=== PATIENT | male | born 1985 | race Caucasian/White ===

== ENCOUNTER → 2016-06-22 | Day surgery (SDC) | payer SELFPAY ==
[~2016-06-22] MED LIST: Dextrose 5%-Lactated Ringers 1,000 ML IV SCH; Glycopyrrolate 0.2 MG/ML 2 ML SYRINGE IVPUSH ONE; Midazolam 1 MG/ML 2 ML SDV ONE; Propofol 200 MG/20 ML SDV ONE; fentaNYL 100 MCG/2 ML SDV ONE
[2016-06-22 08:18] VITALS: BP 145/92
== END ==
LOC: JP.SDS 07:32
PROVIDERS: ATTEND Surgery
DX: Z53.8 Procedure and treatment not carried out for other reasons (principal); K21.9 Gastro-esophageal reflux disease without esophagitis
CPT/HCPCS: J2250; J2704; J3010

== ENCOUNTER 2017-02-12 15:13 | Emergency (ER) | payer MEDICAID ==
[2017-02-12 15:36] VITALS: BP 124/58
--- NOTE | 2017-02-12 16:12 | EDM.PDOCBH ---
<OfficerFredy - Last Filed: 02/12/17 16:10> ED HPI GENERAL MEDICAL PROBLEM - General Chief Complaint: Behavioral/Psych Stated Complaint: EVAL Time Seen by Provider: 02/12/17 15:46 Source of Information: Reports: Patient, RN Notes Reviewed History Limitations: Reports: No Limitations - History of Present Illness INITIAL COMMENTS - FREE TEXT/NARRATIVE: 32-year-old gentleman presents emergency department today with complaint of suicidal ideation he does have a plan multiple ideas such as using a gun injection overdose cutting behavior he also has a history of IV methamphetamine use last used 2 days ago - Related Data Allergies Allergy/AdvReac Type Severity Reaction Status Date / Time No Known Allergies Allergy Verified 01/06/15 20:25 Home Meds: Home Meds Albuterol Sulfate [Proair Hfa] 1 - 2 inh INH Q4H PRN 06/20/14 [History] Albuterol [Proventil Neb Soln] 2.5 mg INH TID 06/20/16 [History] Omeprazole 40 mg PO DAILY 06/20/16 [History] Sertraline [Zoloft] 100 mg PO DAILY 02/12/17 [History] Past Medical History HEENT History: Reports: Impaired Vision, Sinusitis Other HEENT History: wears glasses Cardiovascular History: Reports: SOB on Exertion Respiratory History: Reports: Asthma Gastrointestinal History: Reports: GERD Musculoskeletal History: Reports: Back Pain, Chronic, Fracture Neurological History: Reports: Concussion, Headaches, Chronic Psychiatric History: Reports: Addiction, Aggressive/Hostile Behaviors, Antisocial Behaviors, Anxiety, Depression, Emotional Problems, Hallucinations, Mood Swings, Panic Attack, Suicide Attempt, Suicidal Ideation Endocrine/Metabolic History: Reports: Obesity/BMI 30+ - Infectious Disease History Infectious Disease History: Reports: Chicken Pox, Hepatitis A, Hepatitis B - Past Surgical History Respiratory Surgical History: Reports: None GI Surgical History: Reports: None Endocrine Surgical History: Reports: None Musculoskeletal Surgical History: Reports: Arthroscopic Knee Dermatological Surgical History: Reports: None Social & Family History - Tobacco Use Smoking Status *Q: Current Every Day Smoker Years of Tobacco use: 17 Packs/Tins Daily: 1 Used Tobacco, but Quit: No Month Tobacco Last Used: may Second Hand Smoke Exposure: Yes - Caffeine Use Caffeine Use: Reports: Coffee, Energy Drinks, Tea - Alcohol Use Days Per Week of Alcohol Use: 0 - Recreational Drug Use Recreational Drug Use: Yes Drug Use in Last 12 Months: Yes Recreational Drug Type: Reports: Methamphetamine Recreational Drug Use Frequency: Daily Recreational Drug Last Use: 02/09/17 ED ROS GENERAL - Review of Systems Review Of Systems: See Below Constitutional: Reports: No Symptoms HEENT: Reports: No Symptoms Respiratory: Reports: No Symptoms Cardiovascular: Reports: No Symptoms GI/Abdominal: Reports: No Symptoms : Reports: No Symptoms Skin: Reports: No Symptoms Neurological: Reports: No Symptoms Psychiatric: Reports: Suicidal Ideation ED EXAM, BEHAVIORAL HEALTH - Physical Exam Exam Limited By: No Limitations General Appearance: Alert, WD/WN, No Apparent Distress Eye Exam: Bilateral Eye: Normal Inspection Respiratory/Chest: No Respiratory Distress, Lungs Clear, Normal Breath Sounds, No Accessory Muscle Use Cardiovascular: Regular Rate, Rhythm, No Murmur GI/Abdominal: Soft, Non-Tender Psychiatric: Alert, Depressed Mood, Tearful, Agitated, Suicidal Plan, Suicidal Thoughts COURSE, BEHAVIORAL HEALTH COMP - Course Vital Signs: Last Vital Signs Temp 97.3 F 02/12/17 15:39 Pulse 91 02/12/17 15:39 Resp 18 02/12/17 15:39 BP 124/58 L 02/12/17 15:39 Pulse Ox 95 02/12/17 15:39 Orders, Labs, Meds: Laboratory Tests 02/12/17 02/12/17 02/12/17 Range/Units 16:15 16:15 16:15 WBC 7.3 (4.5-11.0) K/uL RBC 4.95 (4.30-5.90) M/uL Hgb 15.0 (12.0-15.0) g/dL Hct 44.1 (40.0-54.0) % MCV 89 (80-98) fL MCH 30 (27-31) pg MCHC 34 (32-36) % Plt Count 283 (150-400) K/uL Neut % (Auto) 59 (36-66) % Lymph % (Auto) 34 (24-44) % Blount % (Auto) 5 (2-6) % Eos % (Auto) 2 (2-4) % Baso % (Auto) 0 (0-1) % Sodium 141 (140-148) mmol/L Potassium 3.9 (3.6-5.2) mmol/L Chloride 104 (100-108) mmol/L Carbon Dioxide 29 (21-32) mmol/L Anion Gap 8.5 (5.0-14.0) mmol/L BUN 15 D (7-18) mg/dL Creatinine 0.9 (0.8-1.3) mg/dL Est Cr Clr Drug Dosing 130.53 mL/min Estimated GFR (MDRD) > 60 (>60) Glucose 83 (74-106) mg/dL Calcium 8.6 (8.5-10.1) mg/dL Total Bilirubin 0.4 D (0.2-1.0) mg/dL AST 25 D (15-37) U/L ALT 36 (12-78) U/L Alkaline Phosphatase 98 (46-116) U/L Total Protein 7.4 (6.4-8.2) g/dL Albumin 4.0 (3.4-5.0) g/dL Globulin 3.4 (2.3-3.5) g/dL Albumin/Globulin Ratio 1.2 (1.2-2.2) TSH, Ultra Sensitive (0.358-3.740) uIU/mL Urine Color Urine Appearance Urine pH (4.5-8.0) Ur Specific [place] (1.008-1.030) Urine Protein (NEGATIVE) mg/dL Urine Glucose (UA) (NEGATIVE) mg/dL Urine Ketones (NEGATIVE) mg/dL Urine Occult Blood (NEGATIVE) Urine Nitrite (NEGAITVE) Urine Bilirubin (NEGATIVE) Urine Urobilinogen (NORMAL) mg/dL Ur Leukocyte Esterase (NEGATIVE) Urine RBC (0-5) Urine WBC (0-5) Ur Epithelial Cells Amorphous Sediment Urine Bacteria Urine Mucus Urine Opiates Screen (NEGATIVE) Ur Oxycodone Screen (NEGATIVE) Urine Methadone Screen (NEGATIVE) Ur Propoxyphene Screen (NEGATIVE) Ur Barbiturates Screen (NEGATIVE) Ur Tricyclics Screen (NEGATIVE) Ur Phencyclidine Scrn (NEGATIVE) Ur Amphetamine Screen (NEGATIVE) U Methamphetamines Scrn (NEGATIVE) Urine MDMA Screen (NEGATIVE) U Benzodiazepines Scrn (NEGATIVE) U Cocaine Metab Screen (NEGATIVE) U Marijuana (THC) Screen (NEGATIVE) Ethyl Alcohol 3 mg/dL 02/12/17 02/12/17 02/12/17 Range/Units 16:15 17:08 17:08 WBC (4.5-11.0) K/uL RBC (4.30-5.90) M/uL Hgb (12.0-15.0) g/dL Hct (40.0-54.0) % MCV (80-98) fL MCH (27-31) pg MCHC (32-36) % Plt Count (150-400) K/uL Neut % (Auto) (36-66) % Lymph % (Auto) (24-44) % Blount % (Auto) (2-6) % Eos % (Auto) (2-4) % Baso % (Auto) (0-1) % Sodium (140-148) mmol/L Potassium (3.6-5.2) mmol/L Chloride (100-108) mmol/L Carbon Dioxide (21-32) mmol/L Anion Gap (5.0-14.0) mmol/L BUN (7-18) mg/dL Creatinine (0.8-1.3) mg/dL Est Cr Clr Drug Dosing mL/min Estimated GFR (MDRD) (>60) Glucose (74-106) mg/dL Calcium (8.5-10.1) mg/dL Total Bilirubin (0.2-1.0) mg/dL AST (15-37) U/L ALT (12-78) U/L Alkaline Phosphatase (46-116) U/L Total Protein (6.4-8.2) g/dL Albumin (3.4-5.0) g/dL Globulin (2.3-3.5) g/dL Albumin/Globulin Ratio (1.2-2.2) TSH, Ultra Sensitive 0.667 (0.358-3.740) uIU/mL Urine Color Yellow Urine Appearance Clear Urine pH 5.0 (4.5-8.0) Ur Specific [place] 1.025 (1.008-1.030) Urine Protein Negative (NEGATIVE) mg/dL Urine Glucose (UA) Normal (NEGATIVE) mg/dL Urine Ketones Negative (NEGATIVE) mg/dL Urine Occult Blood Negative (NEGATIVE) Urine Nitrite Negative (NEGAITVE) Urine Bilirubin Negative (NEGATIVE) Urine Urobilinogen Normal (NORMAL) mg/dL Ur Leukocyte Esterase Negative (NEGATIVE) Urine RBC 0-5 (0-5) Urine WBC 0-5 (0-5) Ur Epithelial Cells Few Amorphous Sediment Few Urine Bacteria Few Urine Mucus Numerous Urine Opiates Screen Negative (NEGATIVE) Ur Oxycodone Screen Negative (NEGATIVE) Urine Methadone Screen Negative (NEGATIVE) Ur Propoxyphene Screen Negative (NEGATIVE) Ur Barbiturates Screen Negative (NEGATIVE) Ur Tricyclics Screen Negative (NEGATIVE) Ur Phencyclidine Scrn Negative (NEGATIVE) Ur Amphetamine Screen Positive H (NEGATIVE) U Methamphetamines Scrn Positive H (NEGATIVE) Urine MDMA Screen Positive H (NEGATIVE) U Benzodiazepines Scrn Negative (NEGATIVE) U Cocaine Metab Screen Negative (NEGATIVE) U Marijuana (THC) Screen Positive H (NEGATIVE) Ethyl Alcohol mg/dL Departure - Departure Disposition: Home, Self-Care 01 Clinical Impression: Depressive disorder, Suicide ideation - Discharge Information Referrals: Crystal Stanton NP [Primary Care Provider] - Forms: ED Department Discharge Care Plan Goals: Patient was transferred to an inpatient psychiatric facility for assessment and stabilization in [facility]. <Santos Preston - Last Filed: 02/12/17 23:42> ED EXAM, BEHAVIORAL HEALTH - Physical Exam Exam: See Below Departure - Departure Time of Disposition: 19:50 Condition: Good
== END 2017-02-12 19:50 | disposition home or self-care (01) ==
LOC: JP.ED 15:13
DX: F32.9 Major depressive disorder, single episode, unspecified (principal); R45.851 Suicidal ideations; K21.9 Gastro-esophageal reflux disease without esophagitis; J45.909 Unspecified asthma, uncomplicated; F17.210 Nicotine dependence, cigarettes, uncomplicated; Z79.899 Other long term (current) drug therapy
CPT/HCPCS: 36415; 80053; 80305; 81001; 84443; 85025; 99285; G0480

== ENCOUNTER 2017-03-26 12:55 | Emergency (ER) | payer MEDICAID ==
[2017-03-26 13:56] VITALS: BP 114/59
--- NOTE | 2017-03-26 14:29 | EDM.PDOC ---
ED HPI GENERAL MEDICAL PROBLEM - General Chief Complaint: ENT Problem Stated Complaint: COUGH/RUNNY NOSE Time Seen by Provider: 03/26/17 14:15 Source of Information: Reports: Patient History Limitations: Reports: No Limitations - History of Present Illness INITIAL COMMENTS - FREE TEXT/NARRATIVE: 32-year-old male who has been sick with a cold for the last 3 or 4 days, started out as a head cold which has somewhat cleared up but it's moved down into his lungs. This morning he coughed up some "stuff" so thought he should be checked for pneumonia. No fevers or chills no shortness of breath. Onset: Gradual Severity: Mild Associated Symptoms: Reports: Cough. Denies: Fever/Chills, Nausea/Vomiting, Shortness of Breath - Related Data Allergies Allergy/AdvReac Type Severity Reaction Status Date / Time No Known Allergies Allergy Verified 01/06/15 20:25 Home Meds: Home Meds Albuterol Sulfate [Proair Hfa] 1 - 2 inh INH Q4H PRN 06/20/14 [History] Albuterol [Proventil Neb Soln] 2.5 mg INH TID 06/20/16 [History] Omeprazole 40 mg PO DAILY 06/20/16 [History] Sertraline [Zoloft] 100 mg PO DAILY 02/12/17 [History] Fluticasone/Salmeterol [Advair Diskus 100-50] 1 puff IH ASDIRECTED PRN 03/26/17 [History] Past Medical History HEENT History: Reports: Impaired Vision, Sinusitis Other HEENT History: wears glasses Cardiovascular History: Reports: SOB on Exertion Respiratory History: Reports: Asthma Gastrointestinal History: Reports: GERD Musculoskeletal History: Reports: Back Pain, Chronic, Fracture Neurological History: Reports: Concussion, Headaches, Chronic Psychiatric History: Reports: Addiction, Aggressive/Hostile Behaviors, Antisocial Behaviors, Anxiety, Depression, Emotional Problems, Hallucinations, Mood Swings, Panic Attack, Suicide Attempt, Suicidal Ideation Endocrine/Metabolic History: Reports: Obesity/BMI 30+ - Infectious Disease History Infectious Disease History: Reports: Chicken Pox - Past Surgical History Respiratory Surgical History: Reports: None GI Surgical History: Reports: None Endocrine Surgical History: Reports: None Musculoskeletal Surgical History: Reports: Arthroscopic Knee Dermatological Surgical History: Reports: None Social & Family History - Tobacco Use Smoking Status *Q: Current Every Day Smoker Years of Tobacco use: 19 Packs/Tins Daily: 1 Used Tobacco, but Quit: No Month Tobacco Last Used: may Second Hand Smoke Exposure: Yes - Caffeine Use Caffeine Use: Reports: Coffee - Alcohol Use Days Per Week of Alcohol Use: 0 - Recreational Drug Use Recreational Drug Use: Yes Drug Use in Last 12 Months: Yes Recreational Drug Type: Reports: Marijuana/Hashish, Methamphetamine Recreational Drug Use Frequency: Rarely Recreational Drug Last Use: 02/09/17 ED ROS GENERAL - Review of Systems Review Of Systems: See Below Constitutional: Reports: Malaise HEENT: Reports: Rhinitis Respiratory: Reports: Cough, Sputum. Denies: Shortness of Breath GI/Abdominal: Denies: Abdominal Pain, Nausea, Vomiting Skin: Denies: Rash Neurological: Denies: Headache ED EXAM, GENERAL - Physical Exam Exam: See Below Exam Limited By: No Limitations General Appearance: Alert, No Apparent Distress Nose: Normal Inspection Throat/Mouth: Normal Inspection Head: Atraumatic Respiratory/Chest: No Respiratory Distress, Lungs Clear Cardiovascular: Regular Rate, Rhythm Neurological: Alert, Oriented Psychiatric: Normal Affect, Normal Mood Skin Exam: Warm, Dry Course - Vital Signs Last Recorded V/S: Last Vital Signs Temp 98.2 F 03/26/17 14:03 Pulse 81 03/26/17 14:03 Resp 16 03/26/17 14:03 BP 114/59 L 03/26/17 14:03 Pulse Ox 94 L 03/26/17 14:03 - Re-Assessments/Exams Free Text/Narrative Re-Assessment/Exam: 03/26/17 14:27 Reassured the patient that this is a typical viral cold. Discharged with some benzonatate Perles for cough suppression and a work note for the next 2 days. Encouraged rest and fluids and he can return if worsening such as difficulty breathing. Departure - Departure Time of Disposition: 14:39 Disposition: Home, Self-Care 01 Condition: Good Clinical Impression: Acute bronchitis, viral - Discharge Information Instructions: Acute Bronchitis, [id number] Referrals: Crystal Stanton NP [Primary Care Provider] - Forms: ED Department Discharge Care Plan Goals: Rest, fluids, use cough suppression medication if needed and increase activity as tolerated. Return for recheck if worsening such as difficulty breathing or persistent nausea and vomiting.
== END 2017-03-26 14:39 | disposition home or self-care (01) ==
LOC: JP.ED 12:55
DX: J20.8 Acute bronchitis due to other specified organisms (principal); F17.210 Nicotine dependence, cigarettes, uncomplicated; K21.9 Gastro-esophageal reflux disease without esophagitis; F41.0 Panic disorder [episodic paroxysmal anxiety]; F32.9 Major depressive disorder, single episode, unspecified; Z79.899 Other long term (current) drug therapy
CPT/HCPCS: 99283

== ENCOUNTER 2019-05-23 08:27 | Day surgery (SDC) | payer MEDICAID ==
[~2019-05-23 08:27] MED LIST changes: -Dextrose 5%-Lactated Ringers 1,000 ML IV SCH; -Glycopyrrolate 0.2 MG/ML 2 ML SYRINGE IVPUSH ONE
[2019-05-23] MEDS ORDERED: Dextrose 5%-Lactated Ringers 1,000 ML IV SCH (10:00)
[2019-05-23] MEDS ORDERED: Glycopyrrolate 0.2 MG/ML 2 ML SDV IVPUSH ONE (10:15)
[2019-05-23 11:01] VITALS: BP 118/85; PULSE 99
--- NOTE | 2019-06-02 14:27 | OR ---
DATE OF PROCEDURE: 05/23/2019 SURGEON: Jones Patel MD PREOPERATIVE DIAGNOSIS: Gastroesophageal reflux disease. 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 OPERATIVE PROCEDURE: Upper gastrointestinal endoscopy with biopsies of esophagogastric junction. ANESTHESIA: IV sedation. INDICATION FOR PROCEDURE: This is a 34-year-old presenting with gastroesophageal reflux disease which has become quite refractory to medical management. Plan is to proceed with upper GI endoscopy with biopsies as indicated. Potential risks including bleeding and perforation were discussed, and the patient wishes to proceed. DETAILS OF PROCEDURE: The patient was taken to the operating room and placed in a left lateral decubitus position. IV sedation was administered, after which the upper GI endoscope was passed orally through the length of the esophagus into the stomach with retroflexion view of the fundus, and thereafter, through the pyloric channel into the proximal duodenum. Findings included some mild redness around the hypopharynx and larynx suggestive of some ongoing reflux. The upper esophageal sphincter and esophageal body were unremarkable. The patient did have a roughly 4 cm hiatal hernia. There was some significant upward extension of the esophagogastric junction mucosal line as well as some islands of columnar type mucosa above that area suggestive of some possible Verma esophagus. Remainder of the stomach and duodenal exams were unremarkable. Biopsies were then obtained from the esophagogastric junction, sent for histologic evaluation. No bleeding from the biopsy site was seen and the procedure then concluded. At this point, the patient is quite refractory to medical management. Our plan will be to proceed with a Emile fundoplication next week. Jones Patel MD /[id number]
== END 2019-05-23 11:00 | disposition home or self-care (01) ==
LOC: JP.SDS 08:27
PROVIDERS: ATTEND Surgery
DX: K20.9 Esophagitis, unspecified (principal); K44.9 Diaphragmatic hernia without obstruction or gangrene; K22.8 Other specified diseases of esophagus; J45.909 Unspecified asthma, uncomplicated; F17.200 Nicotine dependence, unspecified, uncomplicated; E66.9 Obesity, unspecified; Z68.45 Body mass index [BMI] 70 or greater, adult
CPT/HCPCS: 43239; 88305; J2250; J2704; J3010; J3490; J7121

== ENCOUNTER 2019-05-27 06:53 | Day surgery (SDC) | payer MEDICAID ==
[2019-05-27] MEDS ORDERED: Acetaminophen 500 MG Tab PO ONE (07:30)
[2019-05-27] MEDS ORDERED: Albuterol/Ipratropium 3.0-0.5 MG/3 ML Neb Soln NEB ONE (07:30)
[2019-05-27] MEDS ORDERED: Dextrose 5%-Lactated Ringers 1,000 ML IV SCH (07:30)
[2019-05-27] MEDS ORDERED: Neostigmine Methylsulfate 1 MG/ML 5 ML Syringe ONE (07:37)
[2019-05-27] MEDS ORDERED: Rocuronium 50 MG/5 ML Vial ONE ×2 (07:37→10:22)
[2019-05-27] MEDS ORDERED: Ondansetron 4 MG/2 ML SDV ONE (07:37)
[2019-05-27] MEDS ORDERED: fentaNYL 250 MCG/5 ML SDV ONE (07:37)
[2019-05-27] MEDS ORDERED: Dexamethasone 4 MG/ML SDV ONE (07:37)
[2019-05-27] MEDS ORDERED: Propofol 200 MG/20 ML SDV ONE (07:37)
[2019-05-27] MEDS ORDERED: Succinylcholine 200 MG/10 ML MDV ONE (07:37)
[2019-05-27] MEDS ORDERED: Glycopyrrolate 0.2 MG/ML 5 ML MDV ONE (07:37)
[2019-05-27] MEDS ORDERED: Ketamine 500 MG/5 ML MDV IV SCH (08:00)
[2019-05-27] MEDS ORDERED: ceFAZolin 2 GM in Premix Bag 1 BAG IV ONE (08:00)
[2019-05-27] MEDS ORDERED: Ketamine 50 MG in Sodium Chloride 0.9% 49.5 ML IV SCH (08:00)
[2019-05-27] MEDS ORDERED: Lactated Ringers 1,000 ML ONE (09:34)
[2019-05-27] MEDS ORDERED: fentaNYL 100 MCG/2 ML SDV ONE (11:24)
[2019-05-27] MEDS ORDERED: fentaNYL 100 MCG/2 ML SDV IVPUSH ONE (11:36)
[2019-05-27] MEDS ORDERED: hydrOXYzine HCL 100 MG/2 ML SDV IM ONE (11:36)
[2019-05-27] MEDS ORDERED: Naloxone 0.4 MG/ML SDV IVPUSH PRN (11:39)
[2019-05-27] MEDS ORDERED: HYDROmorphone/Normal Saline 15 MG/30 ML PCA IV PRN (11:39)
[2019-05-27] MEDS ORDERED: diphenhydrAMINE 50 MG/ML SDV IVPUSH PRN (11:39)
[2019-05-27] MEDS ORDERED: diphenhydrAMINE 25 MG Cap PO PRN (11:39)
[2019-05-27] MEDS ORDERED: Ondansetron 4 MG/2 ML SDV IVPUSH PRN (11:39)
[2019-05-27] MEDS ORDERED: Naloxone 0.4 MG/ML SDV IV PRN (11:44)
[2019-05-27] MEDS ORDERED: hydrOXYzine HCL 100 MG/2 ML SDV IM PRN (12:24)
[2019-05-27] MEDS ORDERED: Albuterol/Ipratropium 3.0-0.5 MG/3 ML Neb Soln INH PRN (12:25)
[2019-05-27] MEDS: Metoclopramide 10 MG/2 ML SDV IVPUSH SCH ×2 (13:45→18:31)
[2019-05-27] MEDS: Pantoprazole 40 MG Vial IV SCH (13:47)
[2019-05-27] MEDS: Dextrose 5%-Lactated Ringers 1,000 ML IV SCH ×2 (14:30→21:46)
[2019-05-27] MEDS: Albuterol/Ipratropium 3.0-0.5 MG/3 ML Neb Soln INH SCH ×2 (14:42→21:46)
[2019-05-27] MEDS: ceFAZolin 2 GM in Premix Bag 1 BAG IV SCH ×2 (15:37→23:11)
[2019-05-27] MEDS: Fluticasone-Salmeterol 113-14 MCG Powder Inhalant INH SCH (21:46)
[2019-05-28] MEDS: Metoclopramide 10 MG/2 ML SDV IVPUSH SCH ×4 (00:36→19:23)
[2019-05-28] MEDS: Dextrose 5%-Lactated Ringers 1,000 ML IV SCH ×3 (03:50→19:23)
[2019-05-28] MEDS: Fluticasone-Salmeterol 113-14 MCG Powder Inhalant INH SCH ×2 (07:29→21:59)
[2019-05-28] MEDS: Albuterol/Ipratropium 3.0-0.5 MG/3 ML Neb Soln INH SCH ×4 (07:29→21:59)
[2019-05-28] MEDS ORDERED: Ondansetron 4 MG Tab.DIS PO PRN (08:22)
[2019-05-28] MEDS: ceFAZolin 2 GM in Premix Bag 1 BAG IV SCH (08:42)
[2019-05-28] MEDS: buPROPion 150 MG Tab.ER PO SCH (09:19)
[2019-05-28] MEDS: HYDROmorphone 2 MG Tab PO PRN ×2 (09:49→22:00)
[2019-05-28] MEDS: Acetaminophen 160 MG Tab,Disintegrating PO SCH ×3 (09:50→21:57)
[2019-05-28] MEDS: Pantoprazole 40 MG Vial IV SCH (12:21)
--- NOTE | 2019-05-28 17:26 | PN ---
DATE OF SERVICE: 05/28/2019 SUBJECTIVE: Yosef is postoperative day #1 after having a lap Emile. His pain has been controlled. Vital signs are stable. Oral intake 720. Urine output is 2100. REVIEW OF SYSTEMS: Remainder of review of systems negative for any pertinent positives and negatives. OBJECTIVE: GENERAL: Yosef Hubbard is a 34-year-old male. VITAL SIGNS: TPR is 98.4, 84, 16, and blood pressure 114/55. HEENT: Negative. NECK: Supple. HEART: Regular rate and rhythm. LUNGS: Clear. ABDOMEN: Dressings dry and intact. Abdominal binder is on. EXTREMITIES: Without peripheral edema. ASSESSMENT: Laparoscopic Emile fundoplication with repair of paraesophageal diaphragmatic hernia with mesh and excision of mediastinal lipoma for paraesophageal diaphragmatic hernia, gastroesophageal reflux disease refractory to medical management, and mediastinal lipoma. Date of surgery, 05/27/2019. Surgeon, Jones Patel MD. PLAN: 1. Full liquid diet. 2. Decrease IV to 100 mL per hour. 3. Dietary consult. 4. Discontinue IV Dilaudid. 5. Dilaudid 2 mg q.4 hours p.r.n. pain. 6. Dressing off and may shower. 7. Schedule Tylenol 1000 mg q.6 hours. 8. Good pulmonary toilet. 9. We will evaluate p.r.n. or in a.m. Sharifa Linder PA-C /[id number]
[2019-05-29] MEDS: Metoclopramide 10 MG/2 ML SDV IVPUSH SCH ×2 (01:50→05:53)
[2019-05-29] MEDS: Acetaminophen 160 MG Tab,Disintegrating PO SCH ×2 (05:51→09:37)
[2019-05-29] MEDS: Albuterol/Ipratropium 3.0-0.5 MG/3 ML Neb Soln INH SCH (07:14)
[2019-05-29] MEDS: Fluticasone-Salmeterol 113-14 MCG Powder Inhalant INH SCH (07:14)
[2019-05-29 07:22] VITALS: BP 132/76; PULSE 79
--- NOTE | 2019-05-29 08:27 | DISCH ---
ADMISSION DIAGNOSES: Gastroesophageal reflux disease refractory to medical management, asthma, depression disorder, and methamphetamine use. DISCHARGE DIAGNOSES: Laparoscopic Emile fundoplication with repair of paraesophageal diaphragmatic hernia with mesh and excision of mediastinal lipoma for paraesophageal diaphragmatic hernia, gastroesophageal reflux disease refractory to medical management, and mediastinal lipoma. Date of surgery: 05/27/2019. Surgeon: Jones Patel MD. HISTORY: Yosef Hubbard is a 34-year-old male with gastroesophageal reflux disease refractory to medical management. After preoperative evaluation and discussion of possible risks and possible complications, he wished to proceed with surgical procedure. HOSPITAL COURSE: Yosef had his surgery on 05/27/2019. He had no operative complications. On postoperative day #1, he was advanced to a full liquid diet, oral pain medication. He was able to shower. His activity was good. Pain was well managed. Oral intake adequate. He received adequate dietary instruction and he was able to be discharged to home on 05/29/2019. PHYSICAL EXAMINATION: GENERAL: Yosef Hubbard is a 34-year-old male. VITAL SIGNS: Height is 6 feet 3 inches, weight is 274 pounds. TPR at 07:21, 96.3; 79; 16; blood pressure 132/76. HEENT: Negative. NECK: Supple. HEART: Regular rate and rhythm. LUNGS: Clear. ABDOMEN: Dressings dry and intact. Abdominal binder is on. EXTREMITIES: Without peripheral edema. DISPOSITION: Discharged to home. CONDITION: Stable and improving. FOLLOWUP: Followup appointment with Jones Patel MD, at [facility] on 06/11/2019 at 8:15 a.m. HOME MEDICATIONS: 1. Tylenol 1000 mg oral q.6 hours, scheduled #40. 2. Dilaudid 2 mg q.6 hours p.r.n. severe pain, #28. 3. He is to resume home medications: a. Albuterol ProAir inhaler 1 to 2 puffs every 4 hours p.r.n. shortness of breath. b. Proventil nebulizer solution 2.5 mg inhalation 3 times daily. c. Advair Diskus 100/50 1 puff twice daily. d. Omeprazole 40 mg oral daily. e. Bupropion XL 300 mg oral daily. DIET: Full liquid diet for 2 weeks. ACTIVITY: No lifting over 10 pounds for [address] for 1 week and while on narcotic pain medication. Shower/bathing: May shower. DISCHARGE INSTRUCTIONS: Notify provider if any fever, increased pain, nausea, or vomiting. Keep site clean and dry. Wear abdominal binder for 2 weeks and then as tolerated. SPECIAL INSTRUCTIONS: Use incentive spirometer 10 times every hour while awake for 1 week.
[2019-05-29] MEDS: buPROPion 150 MG Tab.ER PO SCH (09:37)
--- NOTE | 2019-06-02 14:30 | OR ---
DATE OF PROCEDURE: 05/27/2019 SURGEON: Jones Patel MD PREOPERATIVE DIAGNOSIS: Gastroesophageal reflux disease refractory to medical management. POSTOPERATIVE DIAGNOSES: 1. Paraesophageal diaphragmatic hernia with associated gastroesophageal reflux disease refractory to medical management. 2. Mediastinal lipoma. OPERATIVE PROCEDURES: 1. Laparoscopic Emile fundoplication with repair of paraesophageal diaphragmatic hernia with mesh (83033). 2. Excision of mediastinal lipoma (64636). ANESTHESIA: General. INDICATIONS FOR PROCEDURE: This is a 34-year-old male presenting with gastroesophageal reflux disease which has become refractory to medical management. After preoperative evaluation and discussion, he wished to proceed with a Emile fundoplication. Potential risks including bleeding, infection, injury to underlying viscera, problems with fundoplication such as dysphagia, gas bloat syndrome, disorders of gastric emptying, as well as possible incomplete relief of reflux symptoms over time were reviewed, and the patient wishes to proceed. DETAILS OF PROCEDURE: The patient was taken to the operating room and placed in a supine position. After general endotracheal anesthesia was induced, he was converted to a lithotomy position and the abdomen prepped and draped. 15 cm inferior and 5 cm left of the xiphoid process, a transverse incision was made and peritoneal cavity entered under direct vision with an Optiview trocar, inflated to 15 mmHg pressure with CO2. Laparoscope was reinserted. No underlying trocar insertion site injuries were seen. Following this, 4 additional trocars were placed across the upper and mid abdomen and general exploration was undertaken. Upon elevation of liver, the patient was noted to have significant paraesophageal component to the hiatal hernia with prolapse of perigastric fat and some gastric fundus along with a tongue of omentum in a plane anterior to the course of the esophagus. This was reduced. The peritoneum overlying incised and reflected downward. The esophagus was then dissected from a right and left crura respectively and then the retroesophageal window created. Further resection resulted in taking the intraabdominal esophageal length down to roughly 4 to 5 cm. At that point, crural repair was accomplished posteriorly with some 0 Ethibond sutures reinforced with PTFE pledgets. During the course of the dissection, mediastinal lipoma was encountered, and this was excised as well. Crural repair was then augmented with a Phasix ST mesh placed with a horseshoe type configuration over the crural repair and along the crura on each side and fixed with some titanium tacking screws. The greater curvature of the stomach was then divided away from the omentum with Harmonic Scalpel beginning in the mid point of the stomach and then extending approximately up to and through the short gastric vessels including the highest posterior short gastric vessels. This resulted in adequately mobile fundus, which was retrieved through the retroesophageal window. Anesthesia placed a guidewire orally across the EG junction into the stomach. Over this, a 54-Japanese Savary dilator was positioned. A 3-stitch 2 cm fundoplication was then accomplished with 0 Ethibond sutures reinforced with PTFE pledgets. Each of the sutures included underlying esophagus to help fix in position. The patient then had 2 sutures of the same stitch-pledget combination placed between the fundus and overlying diaphragm to help fix it in position as well. At that point, the dilator and guidewire were removed and the fundoplication was inspected and found to be satisfactorily floppy. Trocars were sequentially removed and the peritoneal cavity deflated. Bilateral transversus abdominis plane blocks were then placed and the skin then closed with a 4-0 Vicryl stitch and dressing applied, taken to the recovery room in satisfactory condition. There were no evident complications. Jones Patel MD /[id number]
== END 2019-05-29 10:20 | disposition home or self-care (01) ==
LOC: JP.SDS 06:53 → JP.2SS 11:25 → JP.SDS 05-29 10:20
PROVIDERS: ATTEND Surgery
DX: K44.9 Diaphragmatic hernia without obstruction or gangrene (principal); K21.9 Gastro-esophageal reflux disease without esophagitis; D17.4 Benign lipomatous neoplasm of intrathoracic organs; G47.33 Obstructive sleep apnea (adult) (pediatric); J45.40 Moderate persistent asthma, uncomplicated; F33.9 Major depressive disorder, recurrent, unspecified; F15.11 Other stimulant abuse, in remission; F17.210 Nicotine dependence, cigarettes, uncomplicated; E66.01 Morbid (severe) obesity due to excess calories; Z79.899 Other long term (current) drug therapy; Z68.36 Body mass index [BMI] 36.0-36.9, adult; Z79.51 Long term (current) use of inhaled steroids
CPT/HCPCS: 36415; 39220; 43282; 80053; 85027; 88304; 94640; 94762; A9270; C1713; C1781; C9113; J0171; J0330; J0690; J1100; J1170; J2405; J2704; J2710; J2765; J2795; J3010; J3410; J3490; J7050; J7120; J7121; J7620-GY

== ENCOUNTER 2020-04-10 10:27 | Emergency (ER) | payer MEDICAID ==
[2020-04-10 10:52] VITALS: BP 117/65; PULSE 85
[2020-04-10] MEDS ORDERED: Sodium Chloride 0.9% 1,000 ML IV STA (11:01)
[2020-04-10] MEDS ORDERED: fentaNYL 100 MCG/2 ML SDV IVPUSH ONE (11:02)
--- NOTE | 2020-04-10 11:04 | EDM.PDOC ---
ED HPI GENERAL MEDICAL PROBLEM - General Chief Complaint: Abdominal Pain Stated Complaint: UPPER R SIDE ABD PAIN Time Seen by Provider: 04/10/20 10:56 Source of Information: Reports: Patient, Old Records, RN Notes Reviewed History Limitations: Reports: No Limitations - History of Present Illness INITIAL COMMENTS - FREE TEXT/NARRATIVE: 35-year-old gentleman presents emergency department day complaint of right upper quadrant pain, he has had this pain on and off for the last several years had an ultrasound back in 2013 which demonstrated cholelithiasis as well as sludge however he states he got better. Over the last 2 months the pain has progressively gotten worse intermittent he cannot identify any triggers such as food products. He states the particular pain started this morning early about 3:00 in the morning very intense rates it 7 out of 10 he is not nauseated Right Upper Abdomen Pain Score (Numeric/FACES): 7 - Related Data Allergies Allergy/AdvReac Type Severity Reaction Status Date / Time No Known Allergies Allergy Verified 04/10/20 10:45 Home Meds: Home Meds Albuterol Sulfate [Proair Hfa] 1 - 2 inh INH Q4H PRN 06/20/14 [History] Albuterol [Proventil Neb Soln] 2.5 mg INH TID 06/20/16 [History] buPROPion HCL [Wellbutrin Xl] 300 mg PO DAILY 05/21/19 [History] Acetaminophen [Tylenol] 1,000 mg PO Q6HR #40 capsule 05/29/19 [Rx] HYDROmorphone [Dilaudid] 2 mg PO Q6H PRN #28 tablet 05/29/19 [Rx] Past Medical History HEENT History: Reports: Impaired Vision, Sinusitis Other HEENT History: wears glasses Cardiovascular History: Reports: SOB on Exertion Respiratory History: Reports: Asthma, Sleep Apnea Gastrointestinal History: Reports: GERD Musculoskeletal History: Reports: Back Pain, Chronic, Fracture Neurological History: Reports: Concussion, Headaches, Chronic Psychiatric History: Reports: Addiction, Aggressive/Hostile Behaviors, Antisocial Behaviors, Anxiety, Depression, Emotional Problems, Hallucinations, Mood Swings, Panic Attack, Suicide Attempt, Suicidal Ideation Endocrine/Metabolic History: Reports: Obesity/BMI 30+ - Infectious Disease History Infectious Disease History: Reports: Chicken Pox - Past Surgical History HEENT Surgical History: Reports: None Cardiovascular Surgical History: Reports: None Respiratory Surgical History: Reports: None GI Surgical History: Reports: None Endocrine Surgical History: Reports: None Neurological Surgical History: Reports: None Musculoskeletal Surgical History: Reports: Arthroscopic Knee Social & Family History - Family History Family Medical History: No Pertinent Family History Endocrine/Metabolic: Reports: Diabetes, type II - Tobacco Use Tobacco Use Status *Q: Former Tobacco User Used Tobacco, but Quit: Yes Month/Year Tobacco Last Used: 02/2020 - Caffeine Use Caffeine Use: Reports: Coffee, Energy Drinks - Recreational Drug Use Recreational Drug Use: Yes Recreational Drug Type: Reports: Methamphetamine Recreational Drug Use Frequency: Weekly Recreational Drug Last Use: 04/03/20 ED ROS GENERAL - Review of Systems Review Of Systems: See Below Constitutional: Denies: Fever, Chills HEENT: Reports: No Symptoms Respiratory: Reports: No Symptoms Cardiovascular: Reports: No Symptoms GI/Abdominal: Reports: Abdominal Pain, Flatus. Denies: Nausea, Vomiting : Reports: No Symptoms ED EXAM, GI/ABD - Physical Exam Exam: See Below Exam Limited By: No Limitations General Appearance: Alert, WD/WN, No Apparent Distress Respiratory/Chest: No Respiratory Distress, Lungs Clear, Normal Breath Sounds, No Accessory Muscle Use, Chest Non-Tender Cardiovascular: Regular Rate, Rhythm, No Murmur GI/Abdominal Exam: Normal Bowel Sounds, Soft, Tender (Tender right upper quadrant) Course - Vital Signs Last Recorded V/S: Last Vital Signs Temp 94.9 F L 04/10/20 10:51 Pulse 85 04/10/20 10:51 Resp 20 04/10/20 10:51 BP 117/65 04/10/20 10:51 Pulse Ox 99 04/10/20 10:51 - Orders/Labs/Meds Orders: Active Orders 24 hr Category Date Time Status Peripheral IV Care [RC] . DIRECTED Care 04/10/20 11:02 Active Abdomen Ltd [US] Stat Exams 04/10/20 13:11 Taken Iopamidol [Isovue-300 (61%)] Med 04/10/20 11:15 Active 100 ml IV . DIRECTED Sodium Chloride 0.9% [Normal Saline] 80 ml Med 04/10/20 11:15 Active IV ASDIRECTED Sodium Chloride 0.9% [Saline Flush] Med 04/10/20 11:01 Active 10 ml FLUSH ASDIRECTED PRN Peripheral IV Insertion Adult [OM.PC] Urgent Oth 04/10/20 11:01 Ordered Medication Orders Sodium Chloride (Normal Saline) 80 mls @ 3 mls/sec IV ASDIRECTED SHERIF Last Admin: 04/10/20 11:31 Dose: 3 mls/sec Documented by: REINIER Iopamidol (Isovue-300 (61%)) 100 ml IV . DIRECTED SHERIF Last Admin: 04/10/20 11: Dose: 100 ml Documented by: REINIER Sodium Chloride (Saline Flush) 10 ml FLUSH ASDIRECTED PRN PRN Reason: Keep Vein Open Last Admin: 04/10/20 11:31 Dose: 10 ml Documented by: Admin: 04/10/20 11:22 Dose: 10 ml Documented by: SRIKANTH Labs: Laboratory Tests 04/10/20 04/10/20 04/10/20 Range/Units 11:06 11:06 11:06 WBC 5.7 (4.5-11.0) K/uL RBC 4.96 (4.30-5.90) M/uL Hgb 15.1 H (12.0-15.0) g/dL Hct 44.4 (40.0-54.0) % MCV 90 (80-98) fL MCH 30 (27-31) pg MCHC 34 (32-36) % Plt Count 293 (150-400) K/uL Neut % (Auto) 54 (36-66) % Lymph % (Auto) 35 (24-44) % Kay % (Auto) 6 (2-6) % Eos % (Auto) 4 (2-4) % Baso % (Auto) 1 (0-1) % Sodium 139 L (140-148) mmol/L Potassium 4.2 (3.6-5.2) mmol/L Chloride 104 (100-108) mmol/L Carbon Dioxide 23 (21-32) mmol/L Anion Gap 16.2 H (5.0-14.0) mmol/L BUN 9 (7-18) mg/dL Creatinine 0.9 (0.8-1.3) mg/dL Est Cr Clr Drug Dosing 126.94 mL/min Estimated GFR (MDRD) > 60 (>60) Glucose 107 H (74-106) mg/dL Lactic Acid 2.0 (0.4-2.0) mmol/L Calcium 8.5 (8.5-10.1) mg/dL Total Bilirubin 0.2 D (0.2-1.0) mg/dL AST 17 D (15-37) U/L ALT 41 (12-78) U/L Alkaline Phosphatase 85 (46-116) U/L Troponin I < 0.017 (0.000-0.056) ng/mL Total Protein 6.8 (6.4-8.2) g/dL Albumin 3.9 (3.4-5.0) g/dL Globulin 2.9 (2.3-3.5) g/dL Albumin/Globulin Ratio 1.3 (1.2-2.2) Lipase 188 (73-393) U/L Urine Color (YELLOW) Urine Appearance (CLEAR) Urine pH (5.0-8.0) Ur Specific Dickson (1.008-1.030) Urine Protein (NEGATIVE) mg/dL Urine Glucose (UA) (NEGATIVE) mg/dL Urine Ketones (NEGATIVE) mg/dL Urine Occult Blood (NEGATIVE) Urine Nitrite (NEGATIVE) Urine Bilirubin (NEGATIVE) Urine Urobilinogen (0.2-1.0) EU/dL Ur Leukocyte Esterase (NEGATIVE) Urine RBC (0-5) Urine WBC (0-5) Ur Epithelial Cells Amorphous Sediment Urine Bacteria Urine Mucus Urine Opiates Screen (NEGATIVE) Ur Oxycodone Screen (NEGATIVE) Urine Methadone Screen (NEGATIVE) Ur Propoxyphene Screen (NEGATIVE) Ur Barbiturates Screen (NEGATIVE) Ur Tricyclics Screen (NEGATIVE) Ur Phencyclidine Scrn (NEGATIVE) Ur Amphetamine Screen (NEGATIVE) U Methamphetamines Scrn (NEGATIVE) Urine MDMA Screen (NEGATIVE) U Benzodiazepines Scrn (NEGATIVE) U Cocaine Metab Screen (NEGATIVE) U Marijuana (THC) Screen (NEGATIVE) 04/10/20 04/10/20 Range/Units 14:04 14:04 WBC (4.5-11.0) K/uL RBC (4.30-5.90) M/uL Hgb (12.0-15.0) g/dL Hct (40.0-54.0) % MCV (80-98) fL MCH (27-31) pg MCHC (32-36) % Plt Count (150-400) K/uL Neut % (Auto) (36-66) % Lymph % (Auto) (24-44) % Kay % (Auto) (2-6) % Eos % (Auto) (2-4) % Baso % (Auto) (0-1) % Sodium (140-148) mmol/L Potassium (3.6-5.2) mmol/L Chloride (100-108) mmol/L Carbon Dioxide (21-32) mmol/L Anion Gap (5.0-14.0) mmol/L BUN (7-18) mg/dL Creatinine (0.8-1.3) mg/dL Est Cr Clr Drug Dosing mL/min Estimated GFR (MDRD) (>60) Glucose (74-106) mg/dL Lactic Acid (0.4-2.0) mmol/L Calcium (8.5-10.1) mg/dL Total Bilirubin (0.2-1.0) mg/dL AST (15-37) U/L ALT (12-78) U/L Alkaline Phosphatase (46-116) U/L Troponin I (0.000-0.056) ng/mL Total Protein (6.4-8.2) g/dL Albumin (3.4-5.0) g/dL Globulin (2.3-3.5) g/dL Albumin/Globulin Ratio (1.2-2.2) Lipase (73-393) U/L Urine Color Yellow (YELLOW) Urine Appearance Clear (CLEAR) Urine pH 5.5 (5.0-8.0) Ur Specific Dickson 1.015 (1.008-1.030) Urine Protein Negative (NEGATIVE) mg/dL Urine Glucose (UA) Negative (NEGATIVE) mg/dL Urine Ketones Negative (NEGATIVE) mg/dL Urine Occult Blood Negative (NEGATIVE) Urine Nitrite Negative (NEGATIVE) Urine Bilirubin Negative (NEGATIVE) Urine Urobilinogen 0.2 (0.2-1.0) EU/dL Ur Leukocyte Esterase Negative (NEGATIVE) Urine RBC 0-5 (0-5) Urine WBC 0-5 (0-5) Ur Epithelial Cells Rare Amorphous Sediment Not seen Urine Bacteria Not seen Urine Mucus Not seen Urine Opiates Screen Negative (NEGATIVE) Ur Oxycodone Screen Negative (NEGATIVE) Urine Methadone Screen Negative (NEGATIVE) Ur Propoxyphene Screen Negative (NEGATIVE) Ur Barbiturates Screen Negative (NEGATIVE) Ur Tricyclics Screen Negative (NEGATIVE) Ur Phencyclidine Scrn Negative (NEGATIVE) Ur Amphetamine Screen Presumptive positive H (NEGATIVE) U Methamphetamines Scrn Presumptive positive H (NEGATIVE) Urine MDMA Screen Negative (NEGATIVE) U Benzodiazepines Scrn Negative (NEGATIVE) U Cocaine Metab Screen Negative (NEGATIVE) U Marijuana (THC) Screen Presumptive positive H (NEGATIVE) Meds: Medications Generic Name Dose Route Start Last Admin Trade Name Freq PRN Reason Stop Dose Admin Sodium Chloride 80 mls @ 3 mls/sec 04/10/20 11:15 04/10/20 11:31 Normal Saline IV 3 mls/sec ASDIRECTED SHERIF Administration Iopamidol 100 ml 04/10/20 11:15 04/10/20 11:31 Isovue-300 (61%) IV 100 ml . DIRECTED SHERIF Administration Sodium Chloride 10 ml 04/10/20 11:04/10/20 11:31 Saline Flush FLUSH 10 ml ASDIRECTED PRN Administration Keep Vein Open Discontinued Medications Generic Name Dose Route Start Last Admin Trade Name Freq PRN Reason Stop Dose Admin Fentanyl 50 mcg 04/10/20 11:02 04/10/20 11:18 Sublimaze IVPUSH 04/10/20 11:03 50 mcg ONETIME ONE Administration Sodium Chloride 1,000 mls @ 500 mls/hr 04/10/20 11:01 04/10/20 11:22 Normal Saline IV 04/10/20 13:00 500 mls/hr .BOLUS STA Administration Departure - Departure Time of Disposition: 15:21 Disposition: Home, Self-Care 01 Condition: Fair Clinical Impression: Cholelithiasis Qualifiers: Cholelithiasis location: gallbladder Cholecystitis presence: without cholecystitis Biliary obstruction: without biliary obstruction Qualified Code(s): K80.20 - Calculus of gallbladder without cholecystitis without obstruction - Discharge Information Instructions: Cholelithiasis Referrals: Morris Silva NP [Primary Care Provider] - Forms: ED Department Discharge Additional Instructions: Use the hydrocodone for pain control, recommend a bland diet over the next day or so please follow-up with Dr. Patel on Sunday [facility] [[email or web address]], call at 8 in the morning for an appointment time, if pain becomes more severe please return to the emergency department Sepsis Event Note (ED) - Evaluation Sepsis Screening Result: No Definite Risk - Focused Exam Vital Signs: Vital Signs Temp Pulse Resp BP Pulse Ox 04/10/20 10:51 94.9 F L 85 20 117/65 99 - My Orders Last 24 Hours: My Active Orders 04/10/20 11:01 Sodium Chloride 0.9% [Saline Flush] 10 ml FLUSH ASDIRECTED PRN Peripheral IV Insertion Adult [OM.PC] Urgent 04/10/20 11:02 Peripheral IV Care [RC] . DIRECTED 04/10/20 11:15 Iopamidol [Isovue-300 (61%)] 100 ml IV . DIRECTED Sodium Chloride 0.9% [Normal Saline] 80 ml IV ASDIRECTED 04/10/20 13:11 Abdomen Ltd [US] Stat - Assessment/Plan Last 24 Hours: My Active Orders 04/10/20 11:01 Sodium Chloride 0.9% [Saline Flush] 10 ml FLUSH ASDIRECTED PRN Peripheral IV Insertion Adult [OM.PC] Urgent 04/10/20 11:02 Peripheral IV Care [RC] . DIRECTED 04/10/20 11:15 Iopamidol [Isovue-300 (61%)] 100 ml IV . DIRECTED Sodium Chloride 0.9% [Normal Saline] 80 ml IV ASDIRECTED 04/10/20 13:11 Abdomen Front App [US] Stat Plan: Assessment Acuity = acute Site and laterality = cholelithiasis with impacted stone in the gallbladder neck Etiology = unknown Manifestations = abdominal pain Location of injury = Home Lab values = CBC CMP lipase within normal limits troponin was negative CT scan describes the gallbladder stone ultrasound confirms size about 2.4 cm gallbl adder wall thickness is at 4.3 cm no sign of acute cholecystitis however positive Murdock sign and findings are consistent with impacted stone in the gallbladder neck Plan Called and discussed the case with Dr. Patel general surgeon on-call at [phone] he recommended follow-up with him in clinic on Sunday morning 10:00 however if pain gets worse we will plan for emergent cholecystectomy as needed over the weekend, prescription written for hydrocodone 5/325 1 tab p.o. 3 times daily as needed total #10 provided for hand pain control This note was dictated using [employer] voice recognition software please call with any questions on syntax or grammar.
[2020-04-10] MEDS ORDERED: Sodium Chloride 0.9% 80 ML IV SCH (11:15)
[2020-04-10] MEDS ORDERED: Iopamidol 612 MG/ML 100 ML Bottle IV SCH (11:15)
[2020-04-10] MEDS: Sodium Chloride 0.9% 10 ML Syringe FLUSH PRN ×2 (11:22→11:31)
--- NOTE | 2020-04-10 12:50 | CRLCT ---
INDICATION: Right upper quadrant pain. TECHNIQUE: CT of abdomen and pelvis performed after IV injection of 100 mL of Isovue-300. COMPARISON: Abdominal ultrasound 09/29/2013. FINDINGS: Postsurgical changes along the upper stomach and GE junction. The low-density focal abnormality along the lateral aspect of the falciform ligament measures 2.7 cm. This is a typical area of focal fatty infiltration of the liver however the anterior surface of the liver in this region is somewhat nodular and therefore the possibility of this being a lesion other than focal fatty infiltration cannot be excluded. Consider followup with CT or MRI using liver mass protocol to ensure this is indeed related to focal fatty infiltration. Moderate size stone in the gallbladder neck measures at 2 cm and is larger than the stone measuring 7-8 mm seen previously in the gallbladder on September 2013 ultrasound. Vague subtle suggestion of indistinctness along the peripheral aspect of the gallbladder wall is not enough to suggest gallbladder inflammation but if desired at gallbladder ultrasound or HIDA scan could be performed in further evaluation of the gallbladder if there is concern for acute gallbladder pathology. Small lymph nodes in the abdominal retroperitoneum. Moderate amounts of stool in the colon. The appendix is normal. Stool in the ileum may be related to an incompetent ileocecal valve. Remainder negative. IMPRESSION: 1. Moderate size stone in the gallbladder neck has enlarged since September 2013. Slight into indistinctness in the fat surrounding the gallbladder is not enough to suggest inflammation or edema/cholecystitis. If there is concern for acute gallbladder pathology, consider HIDA scan or gallbladder ultrasound. 2. Postsurgical changes upper stomach/GE junction. 3. 2.7 cm low-density focal abnormality along the lateral aspect of the falciform ligament in the liver could be related to focal fatty infiltration since this is a typical location for such however this has a slightly nodular appearance along the anterior liver surface in this region and thus follow-up CT or MRI would be helpful to ensure this is not a lesion other than focal fatty infiltration. Other findings as above. Please note that all CT scans at this facility use dose modulation, iterative reconstruction, and/or weight-based dosing when appropriate to reduce radiation dose to as low as reasonably achievable. Dictated by Kip Mccarthy MD @ Apr 10 2020 12:46PM Signed by Dr. Kip Mccarthy @ Apr 10 2020 12:49PM
--- NOTE | 2020-04-12 09:33 | US ---
Abdomen Ltd, GALLBLADDER ULTRASOUND CLINICAL HISTORY: Cholelithiasis, abdominal pain COMPARISON: CT abdomen 04/10/2020. TECHNIQUE: Real-time images were obtained through the right upper quadrant. FINDINGS: The liver is free of mass or biliary dilatation. There is a normal hepatic echotexture. The gallbladder is slightly thick walled. There is a 1.8 x 2.6 cm stone in the gallbladder neck. This may be impacted. There was a positive Murdock's sign when scanning over the area. The common bile duct measures 6 mm. The pancreas is obscured. IMPRESSION: Large gallstone in the gallbladder neck may be impacted. Gallbladder wall thickening. Visualized areas of the liver showed no mass. Review of the current CT shows a fairly typical low-attenuation region near the falciform ligament.
== END 2020-04-10 15:35 | disposition home or self-care (01) ==
LOC: JP.ED 10:27
DX: K80.20 Calculus of gallbladder without cholecystitis without obstruction (principal); J45.909 Unspecified asthma, uncomplicated; E66.9 Obesity, unspecified; Z68.34 Body mass index [BMI] 34.0-34.9, adult; Z87.891 Personal history of nicotine dependence; Z79.899 Other long term (current) drug therapy
CPT/HCPCS: 36415; 74177; 76705; 80053; 80305; 81001; 83605; 83690; 84484; 85025; 96374; 99284; J3010; J7030; Q9967; 99283

== ENCOUNTER 2020-04-16 05:20 | Day surgery (SDC) | payer MEDICAID ==
[2020-04-16] MEDS ORDERED: cefOXitin 2 GM in Sodium Chloride 0.9% 50 ML IV ONE (06:00)
[2020-04-16] MEDS ORDERED: Acetaminophen 500 MG Tab PO ONE (06:00)
[2020-04-16] MEDS ORDERED: Albuterol/Ipratropium 3.0-0.5 MG/3 ML Neb Soln NEB ONE (06:00)
[2020-04-16] MEDS: Dextrose 5%-Lactated Ringers 1,000 ML IV SCH ×3 (06:30→19:32)
[2020-04-16] MEDS: Bupivacaine 0.5%/EPINEPHrine 1:200,000 50 ML MDV ONE ×2 (06:59→08:20)
[2020-04-16] MEDS ORDERED: fentaNYL 250 MCG/5 ML SDV ONE (07:00)
[2020-04-16] MEDS ORDERED: Propofol 200 MG/20 ML SDV ONE (07:01)
[2020-04-16] MEDS ORDERED: Ondansetron 4 MG/2 ML SDV ONE (07:01)
[2020-04-16] MEDS ORDERED: Rocuronium 50 MG/5 ML Vial ONE (07:01)
[2020-04-16] MEDS ORDERED: Dexamethasone 4 MG/ML SDV ONE (07:01)
[2020-04-16] MEDS ORDERED: Succinylcholine 200 MG/10 ML MDV ONE (07:01)
[2020-04-16] MEDS ORDERED: Glycopyrrolate 0.2 MG/ML 5 ML MDV ONE (07:01)
[2020-04-16] MEDS ORDERED: Neostigmine Methylsulfate 1 MG/ML 5 ML Syringe ONE (07:01)
[2020-04-16] MEDS ORDERED: Ketamine 50 MG in Sodium Chloride 0.9% 49.5 ML IV SCH (08:00)
[2020-04-16] MEDS ORDERED: Ketamine 500 MG/5 ML MDV IV SCH (08:00)
[2020-04-16] MEDS ORDERED: fentaNYL 100 MCG/2 ML SDV ONE (08:08)
[2020-04-16] MEDS ORDERED: hydrOXYzine HCL 100 MG/2 ML SDV IM ONE (08:42)
[2020-04-16] MEDS ORDERED: fentaNYL 100 MCG/2 ML SDV IVPUSH ONE (08:48)
[2020-04-16] MEDS ORDERED: Albuterol/Ipratropium 3.0-0.5 MG/3 ML Neb Soln INH PRN (09:38)
[2020-04-16] MEDS ORDERED: Ondansetron 4 MG/2 ML SDV IVPUSH PRN (10:00)
[2020-04-16] MEDS ORDERED: HYDROmorphone 1 MG/ML Syringe IV PRN (10:00)
[2020-04-16] MEDS ORDERED: HYDROmorphone 0.5 MG/0.5 ML Syringe IVPUSH PRN (10:00)
[2020-04-16] MEDS: Albuterol/Ipratropium 3.0-0.5 MG/3 ML Neb Soln INH SCH ×3 (10:46→22:10)
[2020-04-16] MEDS ORDERED: Pantoprazole 40 MG Vial IVPUSH SCH (11:00)
[2020-04-16] MEDS: buPROPion 150 MG Tab.ER PO SCH (11:16)
[2020-04-16] MEDS: Acetaminophen/HYDROcodone 325-5 MG Tab PO PRN (12:43)
[2020-04-16] MEDS: cefOXitin 2 GM in Sodium Chloride 0.9% 50 ML IV SCH ×2 (12:43→19:32)
[2020-04-17] MEDS: Acetaminophen/HYDROcodone 325-5 MG Tab PO PRN ×2 (02:01→06:42)
[2020-04-17] MEDS: cefOXitin 2 GM in Sodium Chloride 0.9% 50 ML IV SCH ×2 (02:02→06:41)
[2020-04-17] MEDS: Dextrose 5%-Lactated Ringers 1,000 ML IV SCH (02:03)
[2020-04-17] MEDS: Albuterol/Ipratropium 3.0-0.5 MG/3 ML Neb Soln INH SCH (07:28)
[2020-04-17 07:39] VITALS: BP 125/56; PULSE 97
[2020-04-17] MEDS ORDERED: Pantoprazole 40 MG Tab.CR PO SCH (08:00)
[2020-04-17] MEDS: buPROPion 150 MG Tab.ER PO SCH (08:23)
--- NOTE | 2020-04-19 08:57 | DISCH ---
FINAL DIAGNOSES: 1. Chronic cholecystitis and cholelithiasis. 2. History of asthma. 3. History of depression. 4. History of methamphetamine use. OPERATIVE PROCEDURES: Done on 04/16, laparoscopic cholecystectomy. SUMMARY: This 35-year-old male presenting with ongoing episodes of right upper quadrant discomfort associated with nausea. Workup confirmed cholelithiasis. After preoperative evaluation and discussion, he wished to proceed with a laparoscopic cholecystectomy. This was done on 04/16 without incident. The patient had a single large stone lodged in the gallbladder neck. Postoperatively, no significant problems were noted. The postoperative labs looked good. He can be discharged home with his usual medications plus Pel[place] 5/325, 1 to 2 tabs q.6 hours p.r.n. pain, #40. He will be following up with Sharifa Linder at [facility] on 04/26/2020. /[id number]
--- NOTE | 2020-05-01 09:26 | OR ---
DATE OF PROCEDURE: 04/16/2020 SURGEON: Jones Patel MD PREOPERATIVE DIAGNOSIS: Chronic cholecystitis and cholelithiasis. POSTOPERATIVE DIAGNOSIS: Chronic cholecystitis and cholelithiasis. OPERATIVE PROCEDURE: Laparoscopic cholecystectomy ([id number]). ANESTHESIA: General. JEWELRY APPRAISER: Sharifa Linder PA-C. INDICATIONS FOR PROCEDURE: This is a 35-year-old presenting with symptomatic cholelithiasis. Plan is to proceed with a laparoscopic or if necessary open cholecystectomy. Potential risks including bleeding, infection, injury to underlying viscera, problems with stones migrating into the common bile duct requiring additional procedures for correction were gone over and the patient wishes to proceed. DETAILS OF PROCEDURE: The patient was taken to the operating room and placed in a supine position. After general endotracheal anesthesia was induced, he was converted to a lithotomy position and the abdomen prepped and draped. Transverse epigastric incision was made and the peritoneal cavity entered under direct vision with an Optiview trocar and inflated to 15 mmHg pressure with CO2. Laparoscope was reinserted. No underlying trocar insertion site injuries were seen. Following this, a 12 mm subumbilical trocar was placed along with a 5 mm right subcostal trocar. The upper abdomen was examined. The patient was noted to have thick-walled and somewhat edematous- appearing gallbladder consistent with chronic cholecystitis. Some omental adhesions were taken down between the gallbladder and the omentum with Harmonic scalpel. Dissection then continued around the gallbladder neck and cystic duct junction. Once that area was well delineated along with the adjacent cystic artery, the cystic duct was then taken with a STEVE stapler given its relatively thickened and edematous nature and the cystic artery was clipped 2 times proximally and divided with Harmonic Scalpel. The gallbladder was then dissected off the gallbladder bed using Harmonic scalpel and delivered through the epigastric trocar site. It was noted to have a 2 cm stone present, which had been lodged in the gallbladder neck. The area of dissection was inspected. Drain was felt not to be necessary. Trocars were then removed and the peritoneal cavity deflated. Prior to closure, bilateral transversus abdominis plane blocks were then placed and the incisions were anesthetized with 1% lidocaine. Fascia at the 12 mm site was closed with 0 Vicryl stitch and the skin with 4-0 Vicryl skin stitch. Dressing was applied. The patient was taken to the recovery room in satisfactory condition. Physician assistant oceanographer, Sharifa Linder, played an essential role in assisting in this case, helping to position the patient, retract structures as needed, as well as suturing and cutting sutures when indicated. Her presence improved patient safety and decreased the operative time. Jones Patel MD /[id number]
== END 2020-04-17 10:08 | disposition home or self-care (01) ==
LOC: JP.SDS 05:20 → JP.MS 09:30 → JP.SDS 04-17 10:08
PROVIDERS: ATTEND Surgery
DX: K80.10 Calculus of gallbladder with chronic cholecystitis without obstruction (principal); J45.909 Unspecified asthma, uncomplicated; F17.210 Nicotine dependence, cigarettes, uncomplicated; G47.33 Obstructive sleep apnea (adult) (pediatric); F15.10 Other stimulant abuse, uncomplicated; E66.01 Morbid (severe) obesity due to excess calories; Z68.33 Body mass index [BMI] 33.0-33.9, adult; Z98.890 Other specified postprocedural states; Z79.899 Other long term (current) drug therapy
CPT/HCPCS: 36415; 47562; 82247; 84075; 85025; 88304; 94640; 94762; A9270; C9113; J0171; J0330; J0694; J1100; J1170; J2405; J2704; J2710; J2795; J3010; J3410; J3490; J7121; J7620-GY

== ENCOUNTER 2021-07-01 15:34 | Emergency (ER) | payer OTHER, MEDICAID ==
[2021-07-01 15:39] VITALS: BP 144/72; PULSE 111
[2021-07-01] MEDS ORDERED: Lidocaine 1% with EPINEPHrine 1:100,000 50 ML MDV SUBCUT STA (15:52)
[2021-07-01] MEDS ORDERED: Ibuprofen 600 MG Tab PO ONE (15:54)
== END 2021-07-01 17:33 | disposition home or self-care (01) ==
LOC: JP.ED 15:34
DX: S01.01XA Laceration without foreign body of scalp, initial encounter (principal); E66.9 Obesity, unspecified; Z68.33 Body mass index [BMI] 33.0-33.9, adult; Z72.0 Tobacco use; W22.09XA Striking against other stationary object, initial encounter
CPT/HCPCS: 12002; 73130-26-RT; 73130-RT; 99282; 99283-25; A9270-GY